=== PATIENT | male | born 1950 | race African-American/Black ===

== ENCOUNTER 2019-01-27 10:02 | Emergency (ER) | payer OTHER ==
[2019-01-27 10:14] VITALS: BMI 25.5
--- NOTE | 2019-01-27 10:20 | PDOC ---
History of Present Illness - General Chief Complaint: Pain, Acute Stated Complaint: L SIDE PAIN Time Seen by Provider: 01/27/19 10:19 History Source: Patient Exam Limitations: No Limitations - History of Present Illness Initial Comments: 01/27/19 10:21 Mr. Goss is a 68 yr M with history of NIDDM, who presents with a complaint of left side and back pain. These symptoms have been present for the past 5 months at least The patient states that prior to this, he had right sided abdominal pain He reports that his pain is intermittent, resolves on its own Exacerbated by nothing in particular, although, p notes that when he needs to have a bowel movement, his pain worsens Pain is 6/10 at is worse Pt currently has no pain Denies fevers, chills, nausea or vomiting PMH: NIDDM, BPH PSH: Meds: Flomax, Atorvastatin, Metformin, Losartan ALL: NKDA Social: denies tobacco, alcohol use ROS: GENERAL/CONSTITUTIONAL: No: fever, chills, weakness, loss of appetite. HEAD, EYES, EARS, NOSE AND THROAT: No: change in vision, ear pain, discharge, sore throat, throat swelling. CARDIOVASCULAR: No: chest pain, lightheadedness, palpitations, syncope RESPIRATORY: No: cough, shortness of breath, wheezing, hemoptysis, stridor. GASTROINTESTINAL: Yes: abdominal pain, side pain No: nausea, vomiting, diarrhea GENITOURINARY: No: dysuria, hematuria, frequency, urgency, flank pain. MUSCULOSKELETAL: No: back pain, neck pain, joint pain, muscle swelling or pain SKIN: No: lesions, pallor, rash or easy bruising. NEUROLOGIC: No: headache, vertigo, paresthesias, weakness ENDOCRINE: No: unexplained weight gain or loss HEMATOLOGIC/LYMPHATIC: No: anemia PE: GENERAL: The patient is in no acute distress. HEAD: Normal EYES: PERRLA, EOMI, sclera anicteric, conjunctiva clear. ENT: Ears normal, nares patent, oropharynx clear without exudates. Moist mucous membranes. NECK: Normal range of motion, supple without lymphadenopathy LUNGS: Breath sounds equal, clear to auscultation bilaterally. No wheezes, and no crackles. HEART:Regular rate and rhythm, normal S1 and S2 ABDOMEN: Soft, nontender, normoactive bowel sounds. No guarding, no rebound. No masses palpable. EXTREMITIES: Normal range of motion, no edema. NEUROLOGICAL: Cranial nerves II through XII grossly intact. Normal speech. No focal neurological deficits. MUSCULOSKELETAL: Back non-tender to palpation, no CVA tenderness SKIN: Warm, Dry, normal turgor, no rashes or lesions noted. 01/27/19 10:46 01/27/19 11:22 Is this a multiple visit Asthma Patient?: No Past History - Past Medical History Allergies/Adverse Reactions: Allergies Allergy/AdvReac Type Severity Reaction Status Date / Time No Known Allergies Allergy Verified 01/27/19 10:14 Home Medications: Ambulatory Orders Atorvastatin Ca [Lipitor] 20 mg PO HS 01/27/19 Atorvastatin Ca [Lipitor] 20 mg PO HS 01/27/19 Dicyclomine HCl [Bentyl -] 10 mg PO Q8H PRN #15 capsule 01/27/19 Losartan Potassium 25 mg PO DAILY 01/27/19 Metformin HCl [Glucophage] 1,000 mg PO BID 01/27/19 Methocarbamol [Robaxin -] 500 mg PO TID PRN #15 tablet 01/27/19 Tamsulosin HCl [Flomax] 0.4 mg PO DAILY 01/27/19 COPD: No Diabetes: Yes Disorders: Yes (enlarged prostate, elevated PSA) HTN: Yes - Reproductive History Testicular CA: No Hx Transurethral Resection: No Testicular Surgery: No Testicular Torsion: No - Suicide/Smoking/Psychosocial Hx Smoking History: Never smoked Hx Alcohol Use: No Drug/Substance Use Hx: No *Physical Exam - Vital Signs Last Vital Signs Temp Pulse Resp BP Pulse Ox 98.0 F 88 16 148/80 99 01/27/19 10:10 01/27/19 10:10 01/27/19 10:10 01/27/19 10:10 01/27/19 10:10 ED Treatment Course - LABORATORY CBC & Chemistry Diagram: 01/27/19 11:27 01/27/19 11:27 Medical Decision Making - Medical Decision Making 01/27/19 12:03 68 yo M presenting with a complaint of chronic abdominal pain colonoscopy last done many years ago DD: diverticulitis, abscess, colitis, metastatic disease Will do: Labs CT Re Assess 01/27/19 12:20 Laboratory Tests 01/27/19 01/27/19 01/27/19 11:27 11:27 11:27 WBC 3.7 L Hgb 14.3 Hct 41.8 Plt Count 133 L BUN 11.5 Creatinine 1.3 Lipase 420 H Urine Blood Urine Nitrite Ur Leukocyte Esterase 01/27/19 11:27 WBC Hgb Hct Plt Count BUN Creatinine Lipase Urine Blood Negative Urine Nitrite Negative Ur Leukocyte Esterase Negative CT pending 01/27/19 14:45 CT - no PE noted, thyroid nodule Abd: ileus, no SBO, no diverticulitis or abscess, prostate enlargement Pt given copies of labs and CT reports We have discussed all findings on his CT scan Pt asked to follow up with PMD re: CT findings Will ask pt to keep follow up for prostate biopsy Follow up with PMD Return to the ER for any other concerns or complaints Clinical impression: Chronic abdominal/back pain *DC/Admit/Observation/Transfer Diagnosis at time of Disposition: Enlarged prostate Back pain Qualifiers: Back pain location: low back pain Chronicity: chronic Back pain laterality: left Sciatica presence: without sciatica Qualified Code(s): M54.5 - Low back pain - Discharge Dispostion Disposition: HOME Condition at time of disposition: Stable Decision to Admit order: No - Prescriptions Prescriptions: Dicyclomine HCl [Bentyl -] 10 mg PO Q8H PRN #15 capsule PRN Reason: abdominal pain Methocarbamol [Robaxin -] 500 mg PO TID PRN #15 tablet PRN Reason: Back Pain - Referrals - Patient Instructions Printed Discharge Instructions: DI for Abdominal Pain-Adult, DI for Abdominal Muscle Strain, DI for Flank Pain Additional Instructions: Mr. Goss Thank you for coming in to the ER today Please be sure to follow up with your primary care physician within 1 week It may be a good idea to see the intestinal specialist Please also keep your appointment for your biopsy Please try the medication I have prescribed Try taking it along with tylenol when you have pain Monitor for fevers or chills ALSO, please keep a food diary! Write down the things that you are eating to see if your symptoms are related to something you are eating Please feel free to return to the ER for any other concerns or complaints - Post Discharge Activity Forms/Work/School Notes: Back to Work
[2019-01-27 11:44] LABS: BASO % 0.7 % (0-2.0); EOS % 2.2 % (0-4.5); HEMATOCRIT 41.8 % (35.4-49); HEMOGLOBIN 14.3 GM/dL (11.7-16.9); LYMPH % 30.9 % (8-40); MCH 29.5 pg (25.7-33.7); MCHC 34.2 g/dl (32.0-35.9); MEAN CELL VOLUME 86.2 fl (80-96); MEAN PLT VOLUME 8.5 fl (7.5-11.1); MONO % 5.8 % (3.8-10.2); NEUT % 60.4 % (42.8-82.8); PLATELET COUNT 133 K/MM3 (134-434); RBC 4.84 M/mm3 (4.00-5.60); RDW 13.7 % (11.9-15.9); WHITE BLOOD COUNT 3.7 K/mm3 (4.0-10.0)
[2019-01-27 12:04] LABS: URINE APPEARANCE CLEAR; URINE BILIRUBIN NEGATIVE (NEGATIVE); URINE COLOR YELLOW; URINE GLUCOSE (UA) 3+ (NEGATIVE); URINE KETONE NEGATIVE (NEGATIVE); URINE LEUK ESTERASE NEGATIVE (NEGATIVE); URINE NITRITE NEGATIVE (NEGATIVE); URINE PROTEIN NEGATIVE (NEGATIVE); URINE UROBILINOGEN 0.2 mg/dL (0.2-1.0)
[2019-01-27 12:07] LABS: ALBUMIN 4.1 g/dl (3.4-5.0); BILIRUBIN,TOTAL 0.7 mg/dL (0.2-1); BLOOD UREA NITROGEN 11.5 mg/dL (7-18); CALCIUM 9.3 mg/dL (8.5-10.1); CREATININE 1.3 mg/dL (0.55-1.3); POTASSIUM 4.3 mmol/L (3.5-5.1); TOT PROT 7.6 g/dl (6.4-8.2)
[2019-01-27 14:38] VITALS: BP 140/94; PULSE 68; TEMP 97.5
== END 2019-01-27 15:02 | disposition home or self-care (01) ==
LOC: JER 10:02
DX: M54.5 Low back pain (principal); G89.29 Other chronic pain; N40.0 Benign prostatic hyperplasia without lower urinary tract symptoms; R97.20 Elevated prostate specific antigen [PSA]; I10 Essential (primary) hypertension; E11.9 Type 2 diabetes mellitus without complications; Z79.84 Long term (current) use of oral hypoglycemic drugs
CPT/HCPCS: 36415; 71275-TC; 74177-TC; 80053; 81003; 83690; 85025; 87086; 99283-25

== ENCOUNTER 2024-07-02 00:26 | Emergency (ER) | payer BC, OTHER ==
[2024-07-02 00:34] VITALS: BP 159/87; PULSE 105; RESP 18; TEMP 98.8; BMI 25.9
[2024-07-02] MEDS: SODIUM PHOSPHATE/NA BIPHOS 133 ML ENEMA PR ONE (01:03)
[2024-07-02] MEDS: BISACODYL 5 MG TABLET.DR (FP) PO ONE (01:03)
== END 2024-07-02 01:31 | disposition home or self-care (01) ==
LOC: JER 00:26
DX: K59.00 Constipation, unspecified (principal); R14.0 Abdominal distension (gaseous); R10.30 Lower abdominal pain, unspecified; R39.198 Other difficulties with micturition
CPT/HCPCS: 99284-25